=== PATIENT | female | born 1995 | race American Indian/Alaskan Native ===

== ENCOUNTER 2021-07-15 12:49 | Emergency (ER) | payer MEDICAID ==
[2021-07-15 13:41] VITALS: BP 104/74
[2021-07-15] MEDS ORDERED: IBUPROFEN 600 MG TAB PO ONE (15:41)
[2021-07-15] MEDS ORDERED: DEXAMETHASONE 4 MG TAB PO ONE (15:43)
--- NOTE | 2021-07-15 15:45 | Emergency Department Report ---
ED ENT HPI - General Chief complaint: Sore Throat Stated complaint: CHILLS,HEADACHE,SOREHTROAT Time Seen by Provider: 07/15/21 14:58 Source: patient Mode of arrival: Ambulatory Limitations: No Limitations - History of Present Illness Initial comments: 26 year old female presents to ED with complaints of sore throat. Onset yesterday. She reports pain with swallowing and difficulty swallowing due to pain. She states she feels like her throat is swollen. She denies any drooling or trismus. She has been able to tolerate liquids. She reports associated ch ills, JORDAN, nausea, vomiting and body aches. She denies rhinnorrhea, cough, SOB, nasal congestions or any additional symptoms. She denies any known ill contacts or recent travel. MD complaint: sore throat -: Gradual, days(s) (1) - Related Data Previous Rx's Medication Instructions Recorded Last Taken Type Amoxicillin [Trimox CAP] 500 mg PO Q12H #20 capsule 07/15/21 Unknown Rx Ibuprofen [Motrin 600 MG tab] 600 mg PO Q6HR PRN #30 tablet 07/15/21 Unknown Rx Ondansetron [Zofran Odt] 4 mg PO Q8HR PRN #15 tab.rapdis 07/15/21 Unknown Rx dexAMETHasone [Decadron] 4 mg PO ONCE #5 tablet 07/15/21 Unknown Rx Allergies Allergy/AdvReac Type Severity Reaction Status Date / Time No Known Allergies Allergy Unverified 07/15/21 13:25 ED Dental HPI - General Chief complaint: Sore Throat Stated complaint: CHILLS,HEADACHE,SOREHTROAT Time Seen by Provider: 07/15/21 14:58 Source: patient Mode of arrival: Ambulatory Limitations: No Limitations - History of Present Illness Initial comments: 26-year-old female presents to the ER today complaining of sore throat. Patient states that her symptoms started yesterday. She reports pain with swallowing and difficulty swallowing due to the pain. She states that her throat does feel swollen. She states that she has been able to tolerate mainly liquids. She reports associated generalized body aches, headache and chills. She denies any trismus or drooling. She denies any cough, runny nose, nasal congestion, shortness of breath or fever. She denies any apparent ill contacts or recent travel. MD complaint: sore throat - Related Data Previous Rx's Medication Instructions Recorded Last Taken Type Amoxicillin [Trimox CAP] 500 mg PO Q12H #20 capsule 07/15/21 Unknown Rx Ibuprofen [Motrin 600 MG tab] 600 mg PO Q6HR PRN #30 tablet 07/15/21 Unknown Rx Ondansetron [Zofran Odt] 4 mg PO Q8HR PRN #15 tab.rapdis 07/15/21 Unknown Rx dexAMETHasone [Decadron] 4 mg PO ONCE #5 tablet 07/15/21 Unknown Rx Allergies Allergy/AdvReac Type Severity Reaction Status Date / Time No Known Allergies Allergy Unverified 07/15/21 13:25 ED Review of Systems ROS: Stated complaint: CHILLS,HEADACHE,SOREHTROAT Other details as noted in HPI Comment: All other systems reviewed and negative Constitutional: chills ENT: throat pain Respiratory: denies: cough, shortness of breath, wheezing Cardiovascular: denies: chest pain, palpitations Endocrine: no symptoms reported Gastrointestinal: denies: abdominal pain, nausea, diarrhea Genitourinary: denies: urgency, dysuria, frequency, hematuria, discharge, abnormal menses, dyspareunia Musculoskeletal: denies: back pain, joint swelling, arthralgia Skin: denies: rash, lesions Neurological: denies: headache, weakness, paresthesias Psychiatric: denies: anxiety, depression, auditory hallucinations, visual hallucinations, homicidal thoughts, suicidal thoughts Hematological/Lymphatic: denies: easy bleeding, easy bruising, swollen glands ED Past Medical Hx - Medications Home Medications: Home Medications Medication Instructions Recorded Confirmed Last Taken Type Amoxicillin [Trimox CAP] 500 mg PO Q12H #20 capsule 07/15/21 Unknown Rx Ibuprofen [Motrin 600 MG tab] 600 mg PO Q6HR PRN #30 tablet 07/15/21 Unknown Rx Ondansetron [Zofran Odt] 4 mg PO Q8HR PRN #15 tab.rapdis 07/15/21 Unknown Rx dexAMETHasone [Decadron] 4 mg PO ONCE #5 tablet 07/15/21 Unknown Rx ED Physical Exam - General Limitations: No Limitations General appearance: alert, in no apparent distress - Head Head exam: Present: atraumatic, normocephalic, normal inspection - Eye Eye exam: Present: normal appearance, PERRL, EOMI Pupils: Present: normal accommodation - ENT ENT exam: Present: mucous membranes moist - Expanded ENT Exam Expanded Mouth exam: Present: normal external inspection. Absent: drooling, trismus, muffled voice, tongue normal, tongue elevation, laceration Throat exam: Positive: tonsillar erythema, tonsillomegaly, tonsillar exudate. Negative: R peritonsillar mass, L peritonsillar mass - Neck Neck exam: Present: normal inspection, full ROM, lymphadenopathy (Anterior cervical adenopathy noted) - Respiratory Respiratory exam: Present: normal lung sounds bilaterally - Cardiovascular Cardiovascular Exam: Present: regular rate, normal rhythm, normal heart sounds - Neurological Exam Neurological exam: Present: alert, oriented X3, CN II-XII intact, normal gait - Skin Skin exam: Present: intact ED Course Vital Signs 07/15/21 07/15/21 13:27 13:40 Temperature 100.6 F H Pulse Rate 101 H Respiratory 18 Rate Blood Pressure 104/74 [Right] O2 Sat by Pulse 100 Oximetry ED Medical Decision Making - Medical Decision Making The patient is resting comfortably and is well-appearing and in no acute distress. There is no respiratory distress, no stridor, patient tolerating her secretions well, airway is intact and the mental status is normal. The neurological exam is normal, and there is no significant signs of dehydration. Exam is concerning for possible strep throat. Her vital signs show that she does have a mild fever, which likely could be related to the strep infection, but her vitals are stable . Her history, exam, diagnostic testing and the patient current condition does not suggest an infectious process such as meningitis, retropharyngeal abscess, epiglottitis, peritonsillar abscess, Marko's angina, sepsis or any significant pathology warranting further testing, continued ED treatment, admission, consultation or any other evaluation at this time. Discussed suspected diagnosis and treatment plan with patient. The patient condition is stable and appropriate for discharge. Critical care attestation.: If time is entered above; I have spent that time in minutes in the direct care of this critically ill patient, excluding procedure time. ED Disposition Clinical Impression: Tonsillitis with exudate, Strep throat Disposition: HOME / SELF CARE / HOMELESS Is pt being admited?: No Does the pt Need Aspirin: No Condition: Stable Instructions: Tonsillitis, [id number], Strep Throat, Adult Additional Instructions: I recommend that you take the amoxicillin as prescribed and to completion. Take the decadron and the motrin as prescribed. Continue to drink lots of fluids especially cold fluids. Recommend eatting very soft diet. Follow up with PCP next week. Return to ED if worse. Prescriptions: dexAMETHasone [Decadron] 4 mg PO ONCE #5 tablet Ibuprofen [Motrin 600 MG tab] 600 mg PO Q6HR PRN #30 tablet PRN Reason: pain Amoxicillin [Trimox CAP] 500 mg PO Q12H #20 capsule Ondansetron [Zofran Odt] 4 mg PO Q8HR PRN #15 tab.rapdis PRN Reason: Vomiting Referrals: [facility] [Provider Group] - 3-5 Days Forms: Work/School Release Form(ED) Time of Disposition: 15:47
[2021-07-15] MEDS ORDERED: ONDANSETRON 4 MG ODT TAB PO ONE (16:00)
== END 2021-07-15 16:12 | disposition home or self-care (01) ==
LOC: ED 12:49
DX: J02.0 Streptococcal pharyngitis (principal)
CPT/HCPCS: 99282; J8540; Q0162